=== PATIENT | male | born 1980 ===

== ENCOUNTER 2022-04-21 11:22 | Outpatient (REF) | payer MEDICAID, SELFPAY ==
[2022-04-22 08:24] LABS: Hepatitis B Surface Ag Negative (Negative)
[2022-04-22 09:01] LABS: HIV-1/2 Ag & Ab Screen Negative (Negative)
[2022-04-22 09:19] LABS: Hepatitis C Ab w Rflx HCV PCR Negative (Negative)
[2022-04-22 11:10] LABS: Syphilis Serology (RPR) Negative (Negative)
[2022-04-22 15:08] LABS: Chlamydia Result Negative (Negative); GC Result Negative (Negative)
== END 2022-04-21 11:23 | disposition home or self-care (01) ==
LOC: LBN 11:22
PROVIDERS: Visit Provider Nurse Practitioner Family
DX: Z11.3 Encounter for screening for infections with a predominantly sexual mode of transmission (principal); Z11.4 Encounter for screening for human immunodeficiency virus [HIV]; Z11.59 Encounter for screening for other viral diseases
CPT/HCPCS: 86803; 87340; 87389; 87491; 87591; 86592